=== PATIENT | female | born 1975 | race Two or more races ===

== ENCOUNTER 2017-02-21 00:16 | Emergency (ER) | payer OTHER ==
[~2017-02-21] VITALS: Ht 144.8 cm; Wt 54.4 kg
--- NOTE | 2017-02-21 01:13 | NUR ---
PT AMBULATORY TO ER BED 7 C/O "N/V/D AND ABD PAIN SINCE 2099 YESTERDAY" PT AOX4 RR EVEN AND UNLABORED. NO SOB NOTED. NAD NOTED. NO NVD AT THIS TIME. PT NOT DIAPHORETIC. PT GOWNED AND PLACED ON MONITOR WAITING FOR MD JACOBSEN.
--- NOTE | 2017-02-21 01:59 | NUR ---
DR KIM AT BEDSIDE FOR EVAL.
[2017-02-21] MEDS ORDERED: ONDANSETRON 4 MG TAB.RAPDIS ONE (02:03)
--- NOTE | 2017-02-21 02:05 | NUR ---
VERBAL ORDERS PER JULIO TO GIVE ZOFRAN 4MG SL ONE TIME NOW.
[2017-02-21] MEDS ORDERED: ONDANSETRON HCL/PF 4 MG/2 ML VIAL IV ONE (02:30)
[2017-02-21] MEDS ORDERED: ACETAMINOPHEN ES 500 MG TABLET ONE (02:31)
[2017-02-21 02:37] VITALS: BP 107/62
--- NOTE | 2017-02-21 02:42 | NUR ---
PT PASSED PO CHALLENGE. DR. KIM AWARE.
--- NOTE | 2017-02-21 02:52 | NUR ---
Patient discharged to home in stable condition. Written and verbal after care instructions given. Patient verbalizes understanding of instruction. ambulatory with a steady gait
== END 2017-02-21 02:55 | disposition home or self-care (01) ==
LOC: ER 00:18
DX: K52.9 Noninfective gastroenteritis and colitis, unspecified (principal)
CPT/HCPCS: 99283; A4606; Q0162; Z7610